=== PATIENT | male | born 1995 | race Caucasian/White ===

== ENCOUNTER 2017-04-02 03:45 | Emergency (ER) | payer SELFPAY ==
[2017-04-02 03:51] VITALS: BMI 30.1
--- NOTE | 2017-04-02 04:07 | ED PDOC ---
Arrival/HPI - General Chief Complaint: Chest Pain Time Seen by Provider: 04/02/17 03:59 Historian: Patient - History of Present Illness Narrative History of Present Illness (Text): 04/02/17 04:07 [place] is a 22 year old male who presents to the emergency department accompanied by friend complaining of chest pain radiating down his left arm tonight. Patient notes prior to arrival he felt dizzy with associated palpitations. Patient states he smoke "hash" tonight and notes he drinks about 3 -4 20 ounce energy drinks on a daily basis. Patient denies any shortness of breath, cough, fever, chills, abdominal pain, nausea, vomiting, diarrhea, back pain, neck pain, headache, dizziness, or any other complaints. Time/Duration: Other (tonight) Symptom Onset: Gradual Symptom Course: Unchanged Activities at Onset: Rest, Light Context: Home Past Medical History - Provider Review Nursing Documentation Reviewed: Yes - Infectious Disease Hx of Infectious Diseases: None - Pulmonary Other/Comment: "sometimes i have difficulty breathing" - Psychiatric Hx Substance Use: Yes - Surgical History Hx Appendectomy: Yes - Anesthesia Hx Anesthesia: Yes Hx Anesthesia Reactions: No Hx Malignant Hyperthermia: No Family/Social History - Physician Review Nursing Documentation Reviewed: Yes Family/Social History: No Known Family HX Smoking Status: Heavy Smoker > 10 Cigarettes Daily Hx Alcohol Use: Yes Frequency of alcohol use: Socially Hx Substance Use: Yes Substance used: Hashish Allergies/Home Meds Allergies/Adverse Reactions: Allergies No Known Allergies Allergy (Verified 06/05/16 03:56) Review of Systems - Physician Review All systems were reviewed & negative as marked: Yes - Review of Systems Constitutional: Normal. absent: Fevers Eyes: Normal ENT: Normal Respiratory: Normal. absent: SOB, Cough Cardiovascular: Chest Pain, Palpitations, Other (+near-syncopal) Gastrointestinal: Normal. absent: Abdominal Pain, Diarrhea, Nausea, Vomiting Genitourinary Male: Normal. absent: Dysuria, Frequency, Hematuria, Urinary Output Changes Musculoskeletal: Normal. absent: Back Pain, Neck Pain Skin: Normal. absent: Rash Neurological: Dizziness. absent: Headache Endocrine: Normal Hemo/Lymphatic: Normal Psychiatric: Normal Physical Exam Vital Signs Reviewed: Yes Vital Signs Temp Pulse Pulse Resp BP BP Pulse Ox 04/02/17 05:34 80 18 126/81 100 04/02/17 04:21 98.2 F 76 18 116/81 100 04/02/17 04:11 76 116/81 Temperature: Afebrile Blood Pressure: Normal Pulse: Regular Respiratory Rate: Normal Appearance: Positive for: Well-Appearing, Non-Toxic, Comfortable Pain Distress: None Mental Status: Positive for: Alert and Oriented X 3 - Systems Exam Head: Present: Atraumatic, Normocephalic Pupils: Present: PERRL Extroacular Muscles: Present: EOMI Conjunctiva: Present: Normal Mouth: Present: Moist Mucous Membranes Neck: Present: Normal Range of Motion Respiratory/Chest: Present: Clear to Auscultation, Good Air Exchange. No: Respiratory Distress, Accessory Muscle Use Cardiovascular: Present: Regular Rate and Rhythm, Normal S1, S2. No: Murmurs Abdomen: Present: Normal Bowel Sounds. No: Tenderness, Distention, Peritoneal Signs Back: Present: Normal Inspection Upper Extremity: Present: Normal Inspection. No: Cyanosis, Edema Lower Extremity: Present: Normal Inspection. No: Edema Neurological: Present: GCS=15, CN II-XII Intact, Speech Normal Skin: Present: Warm, Dry, Normal Color. No: Rashes Psychiatric: Present: Alert, Oriented x 3, Normal Insight, Normal Concentration Medical Decision Making ED Course and Treatment: 04/02/17 04:07 Impression: 22 year old male complaining of chest pain, near-syncope, palpitations, and dizziness. Plan: -- EKG -- CXR -- Labs, cardiac enzymes -- Urinalysis, urine drug screen -- Reassess and disposition Progress Notes: Reviewed EKG, NSR at [address]-segment elevations or depressions, no T-wave inversions, normal intervals. 04/02/17 05:15 Reviewed radiology, CXR shows no acute process. 04/02/17 05:26 Discussed results and plan with pt. Pt was offered admission to the hospital for further evaluation and monitoring. Pt states he does not wish to stay. Pt will sign out AMA. Explained to the patient that choosing to do so may result in permanent bodily harm or . Discussed at great length that without further evaluation and monitoring there may be unforeseen circumstances and/or deterioration including but not limited to underlying heart disease, permanent bodily harm, or as a result of their choice. Patient is alert, oriented, and shows the mental capacity to make clear decisions regarding the patients health care at this time. Patient continues to wish to leave against medical advice. In light of the patients decision to leave against medical advice, patient is aware of the importance to following up as instructed. The patient has been advised that they should return to the emergency room immediately if they change their mind at any time, or if their condition begins to change or worsen in any way. - Lab Interpretations Lab Results: 04/02/17 04:35 04/02/17 04:35 Lab Results 04/02/17 04:35: WBC 6.0, RBC 6.19 H, Hgb 15.9, Hct 48.0, MCV 77.5 L, MCH 25.7, MCHC 33.1, RDW 17.0 H, Plt Count 330, MPV 10.6 04/02/17 04:35: Sodium 141, Potassium 3.9, Chloride 101, Carbon Dioxide 27, Anion Gap 17, BUN 19, Creatinine 0.9, Est GFR ( Amer) > 60, Est GFR (Non- Af Amer) > 60, Random Glucose 98, Calcium 10.0, Total Bilirubin 0.7, AST 46, ALT 54, Alkaline Phosphatase 77, Lactate Dehydrogenase 546, Total Creatine Kinase 807 H, CK-MB (CK-2) 1.2, CK-MB (CK-2) % Cancelled, Troponin I < 0.01, Total Protein 9.2 H, Albumin 4.9 H, Globulin 4.3, Albumin/Globulin Ratio 1.1 04/02/17 04:35: PT 10.3, INR 0.95, APTT 26.1 04/02/17 04:20: Urine Opiates Screen Negative, Urine Methadone Screen Negative, Ur Barbiturates Screen Negative, Ur Phencyclidine Scrn Negative, Ur Amphetamines Screen Negative, U Benzodiazepines Scrn Negative, U Oth Cocaine Metabols Negative, U Cannabinoids Screen Negative I have reviewed the lab results: Yes - RAD Interpretation Radiology Orders: 04/02/17 04:07 CHEST PORTABLE [RAD] Stat Tool Planer Set Up Operator: ED Physician - EKG Interpretation Interpreted by ED Physician: Yes Type: 12 lead EKG - Scribe Statement The provider has reviewed the documentation as recorded by the Mihaela David Provider Attestation: All medical record entries made by the Mihaela were at my direction and personally dictated by me. I have reviewed the chart and agree that the record accurately reflects my personal performance of the history, physical exam, medical decision making, and the department course for this patient. I have also personally directed, reviewed, and agree with the discharge instructions and disposition. Disposition/Present on Arrival - Present on Arrival Any Indicators Present on Arrival: No History of DVT/PE: No History of Uncontrolled Diabetes: No Urinary Catheter: No History of Decub. Ulcer: No History Surgical Site Infection Following: None - Disposition Have Diagnosis and Disposition been Completed?: Yes Diagnosis: Chest pain Disposition: AGAINST MEDICAL ADVICE Disposition Time: 05:44 Condition: STABLE Discharge Instructions (ExitCare): Chest Pain (ED)
[2017-04-02 04:22] VITALS: RESP 18; TEMP 98.2; O2SAT 100
[2017-04-02 04:53] LABS: ALB/GLOB RATIO 1.1 (1.1-1.8); ALKALINE PHOSPHATASE 77 U/L (38-133); ALT/SGPT 54 U/L (7-56); AST/SGOT 46 U/L (15-59); BILIRUBIN,TOTAL 0.7 mg/dL (0.2-1.3); BLOOD UREA NITROGEN 19 mg/dL (7-21); CARBON DIOXIDE 27 mmol/L (21-33); CHLORIDE 101 mmol/L (98-107); GFR AFRICAN-AMERICAN > 60; GLUCOSE,RANDOM 98 mg/dL (70-110); POTASSIUM 3.9 mmol/L (3.6-5.0); SODIUM 141 mmol/L (132-148); TOTAL PROTEIN 9.2 g/dL (5.8-8.3)
[2017-04-02 04:54] LABS: MEAN CELL VOLUME 77.5 fL (80.0-105.0); MEAN CORPUSCULAR HEMOGLOBIN 25.7 pg (25.0-35.0); MEAN CORPUSCULAR HGB CONC 33.1 g/dl (31.0-37.0); MEAN PLATELET VOLUME 10.6 fl (7.0-11.0)
[2017-04-02 04:56] LABS: INR 0.95 (0.93-1.08); PARTIAL THROMBOPLASTIN TIME 26.1 Seconds (23.7-30.8)
[2017-04-02 05:20] LABS: TROPONIN I < 0.01 ng/mL
[2017-04-02 05:35] VITALS: BP 126/81; PULSE 80
--- NOTE | 2017-04-02 07:59 | RAD ---
HISTORY: pain COMPARISON: No prior. FINDINGS: LUNGS: No active pulmonary disease. PLEURA: No significant pleural effusion identified, no pneumothorax apparent. CARDIOVASCULAR: Normal. OSSEOUS STRUCTURES: No significant abnormalities. VISUALIZED UPPER ABDOMEN: Normal. OTHER FINDINGS: None. IMPRESSION: No active disease.
--- NOTE | 2017-04-02 09:39 | CARD ---
APPROVED REPORT EKG Measurement Heart [id number] MI 140P-12 [id number] <Conclusion> Normal sinus rhythm Normal ECG
== END 2017-04-02 05:36 | disposition left against medical advice (07) ==
LOC: ED 03:45
DX: R07.9 Chest pain, unspecified (principal); F12.90 Cannabis use, unspecified, uncomplicated
CPT/HCPCS: 71010; 80053; 82550; 82553; 83615; 84484; 85027; 85610; 85730; 93005; 99283; G0480

== ENCOUNTER 2017-10-22 20:18 | Emergency (ER) | payer SELFPAY ==
[2017-10-22 20:18] VITALS: BMI 30.1
[2017-10-22 20:54] VITALS: RESP 18; TEMP 98.4; O2SAT 97
--- NOTE | 2017-10-22 21:33 | ED PDOC ---
Arrival/HPI - General Chief Complaint: Weakness/Neurological Deficit Time Seen by Provider: 10/22/17 21:11 Historian: Patient - History of Present Illness Narrative History of Present Illness (Text): 10/22/17 21:29 [place] is a 22 year old male who presents to the Emergency department complaining of sore throat for the past few days. Patient also complaining of left arm paresthesias/tingling sensation for 4 days and bilateral rib discomfort. Patient reports a history of tobacco abuse. Patient denies any history of strenuous activity, fever, chills, shortness of breath, nausea, vomiting, back pain, neck pain, headache, dizziness, or any other complaints. Time/Duration: < week (4 days) Symptom Onset: Gradual Symptom Course: Unchanged Activities at Onset: Light Context: Home Past Medical History - Provider Review Nursing Documentation Reviewed: Yes - Infectious Disease Hx of Infectious Diseases: None - Pulmonary Hx Respiratory Disorders: Yes Hx Asthma: Yes Other/Comment: "sometimes i have difficulty breathing" - Psychiatric Hx Substance Use: Yes - Surgical History Hx Appendectomy: Yes - Anesthesia Hx Anesthesia: Yes Hx Anesthesia Reactions: No Hx Malignant Hyperthermia: No Family/Social History - Physician Review Nursing Documentation Reviewed: Yes Family/Social History: Unknown Family HX Smoking Status: Heavy Smoker > 10 Cigarettes Daily Hx Alcohol Use: Yes Frequency of alcohol use: Few days per week Hx Substance Use: Yes Substance used: Hashish Allergies/Home Meds Allergies/Adverse Reactions: Allergies No Known Allergies Allergy (Verified 06/05/16 03:56) Review of Systems - Physician Review All systems were reviewed & negative as marked: Yes - Review of Systems Constitutional: Normal. absent: Fevers Eyes: Normal ENT: Sore Throat Respiratory: Normal. absent: SOB, Cough Cardiovascular: Other (+rib pain) Gastrointestinal: Normal. absent: Abdominal Pain, Nausea, Vomiting Genitourinary Male: Normal. absent: Dysuria, Frequency, Hematuria, Urinary Output Changes Musculoskeletal: Other (+left arm tingling sensation). absent: Back Pain, Neck Pain Skin: Normal. absent: Rash Neurological: Normal. absent: Headache, Dizziness Endocrine: Normal Hemo/Lymphatic: Normal Psychiatric: Normal Physical Exam Vital Signs Reviewed: Yes Vital Signs Temp Pulse Resp BP Pulse Ox 10/23/17 00:18 73 18 126/78 97 10/22/17 22:18 74 18 127/80 97 10/22/17 20:54 98.4 F 72 18 128/82 97 Temperature: Afebrile Blood Pressure: Normal Pulse: Regular Respiratory Rate: Normal Appearance: Positive for: Well-Appearing, Non-Toxic, Comfortable Pain Distress: None Mental Status: Positive for: Alert and Oriented X 3 - Systems Exam Head: Present: Atraumatic, Normocephalic Pupils: Present: PERRL Extroacular Muscles: Present: EOMI Conjunctiva: Present: Normal Ears: Present: Normal, NORMAL TM, Normal Canal. No: Erythema, TM Bulging, Fluid , TM Perf Mouth: Present: Moist Mucous Membranes Pharnyx: Present: ERYTHEMA (Minimal erythema to posterior pharynx) Neck: Present: Normal Range of Motion Respiratory/Chest: Present: Clear to Auscultation, Good Air Exchange, Tender to Palpation (Bilateral rib tenderness to palpation). No: Respiratory Distress, Accessory Muscle Use Cardiovascular: Present: Regular Rate and Rhythm, Normal S1, S2. No: Murmurs Abdomen: Present: Normal Bowel Sounds. No: Tenderness, Distention, Peritoneal Signs Back: Present: Normal Inspection Upper Extremity: Present: Normal Inspection. No: Cyanosis, Edema Lower Extremity: Present: Normal Inspection. No: Edema Neurological: Present: GCS=15, CN II-XII Intact, Speech Normal, Motor Func Grossly Intact, Normal Sensory Function Skin: Present: Warm, Dry, Normal Color. No: Rashes Psychiatric: Present: Alert, Oriented x 3, Normal Insight, Normal Concentration Medical Decision Making ED Course and Treatment: 10/22/17 21:29 Impression: 22 year old male complaining of sore throat, left arm paresthesias/tingling, and bilateral rib discomfort. Differential Diagnosis included but are not limited to: pharyngitis vs. paresthesias vs. muscle strain Plan: -- EKG -- Chest X-ray -- Labs, cardiac enzymes -- Urinalysis, urine drug screen -- Reassess and disposition Prior Visits: Notes and results from previous visits were reviewed. On 04/02/2017, pt was seen in the Emergency department for chest pain radiating to his arm. Pt left against medical advice. Progress Notes: 10/22/17 22:00 Reviewed EKG, NSR at [address]-segment elevations or depressions, no T-wave inversions, normal intervals. 10/22/17 23:55 Reviewed radiology, Chest X-ray shows no acute processes. Labs noted, within normal limits. 10/23/17 00:45 On re-evaluation, patient feels better and is in no acute distress. I have discussed the results and plan with the patient, who expresses understanding. Patient in agreement with plan to be discharged home. Patient is stable for discharge. Patient was instructed to follow up with physician or return if symptoms worsen or new concerning symptoms arise. - Lab Interpretations Lab Results: 10/22/17 22:00 10/22/17 22:00 Lab Results 10/22/17 22:00: WBC 4.8, RBC 6.26 H, Hgb 16.3, Hct 49.3, MCV 78.8 L, MCH 26.0, MCHC 33.1, RDW 15.4 H, Plt Count 279, MPV 10.6 10/22/17 22:00: Sodium 141, Potassium 4.5, Chloride 103, Carbon Dioxide 26, Anion Gap 17, BUN 19, Creatinine 1.0, Est GFR ( Amer) > 60, Est GFR (Non- Af Amer) > 60, Random Glucose 96, Calcium 10.0, Total Bilirubin 0.6, AST 42, ALT 51, Alkaline Phosphatase 61, Total Protein 8.4 H, Albumin 4.6, Globulin 3.8 , Albumin/Globulin Ratio 1.2 I have reviewed the lab results: Yes - RAD Interpretation Radiology Orders: 10/22/17 21:33 CHEST ONE VIEW [RAD] Stat Instrumentation Tech: ED Physician - EKG Interpretation Interpreted by ED Physician: Yes Type: 12 lead EKG - Medication Orders Current Medication Orders: Discontinued Medications Amoxicillin (Amoxil 500 Mg Cap) 500 mg PO STAT STA PRN Reason: Protocol Stop: 10/23/17 00:50 Last Admin: 10/23/17 00:56 Dose: 500 mg - Scribe Statement The provider has reviewed the documentation as recorded by the Mihaela David Provider Scribe Attestation: All medical record entries made by the Scribe were at my direction and personally dictated by me. I have reviewed the chart and agree that the record accurately reflects my personal performance of the history, physical exam, medical decision making, and the department course for this patient. I have also personally directed, reviewed, and agree with the discharge instructions and disposition. Disposition/Present on Arrival - Present on Arrival Any Indicators Present on Arrival: No History of DVT/PE: No History of Uncontrolled Diabetes: No Urinary Catheter: No History of Decub. Ulcer: No History Surgical Site Infection Following: None - Disposition Have Diagnosis and Disposition been Completed?: Yes Diagnosis: Muscle strain, Pharyngitis, Paresthesia Disposition: HOME/ ROUTINE Disposition Time: 00:45 Patient Plan: Discharge Condition: GOOD Discharge Instructions (ExitCare): Muscle Strain (ED), Pharyngitis (ED), Paresthesia (ED) Additional Instructions: Take meds as prescribed/advil as directed/follow up with your doctor this week Prescriptions: Amoxicillin [Amoxil 500 mg Cap] 500 mg PO TID #21 cap Referrals: Michael Bautista, [Primary Care Provider] - Follow up with primary Brennon Juárez MD [Staff Provider] - Follow up with primary Forms: [employer] (Korean)
[2017-10-22 22:27] LABS: ALKALINE PHOSPHATASE 61 U/L (38-126); ALT/SGPT 51 U/L (7-56); AST/SGOT 42 U/L (17-59); BILIRUBIN,TOTAL 0.6 mg/dL (0.2-1.3); BLOOD UREA NITROGEN 19 mg/dL (7-21); CARBON DIOXIDE 26 mmol/L (21-33); CHLORIDE 103 mmol/L (98-107); GFR AFRICAN-AMERICAN > 60; GLUCOSE,RANDOM 96 mg/dL (70-110); POTASSIUM 4.5 mmol/L (3.6-5.0); SODIUM 141 mmol/L (132-148); TOTAL PROTEIN 8.4 g/dL (5.8-8.3)
[2017-10-22 22:28] LABS: ALB/GLOB RATIO 1.2 (1.1-1.8)
[2017-10-22 22:31] LABS: HEMATOCRIT 49.3 % (42.0-52.0); MEAN CELL VOLUME 78.8 fl (80.0-105.0); MEAN CORPUSCULAR HGB CONC 33.1 g/dl (31.0-37.0); MEAN PLATELET VOLUME 10.6 fl (7.0-11.0); RED CELL DISTRIBUTION WIDTH 15.4 % (11.5-14.5); WHITE BLOOD COUNT 4.8 10^3/ul (4.5-11.0)
[2017-10-23 01:10] VITALS: BP 126/78; PULSE 73
--- NOTE | 2017-10-23 08:49 | RAD ---
PROCEDURE: CHEST RADIOGRAPH, 1 VIEW HISTORY: chest tenderness COMPARISON: 04/02/2017 FINDINGS: LUNGS: Clear. PLEURA: No pneumothorax or pleural fluid seen. CARDIOVASCULAR: Normal. OSSEOUS STRUCTURES: No significant abnormalities. VISUALIZED UPPER ABDOMEN: Normal. OTHER FINDINGS: None. IMPRESSION: No active disease.
--- NOTE | 2017-10-23 20:01 | CARD ---
APPROVED REPORT EKG Measurement Heart [id number] [id number] <Conclusion> Normal sinus rhythm Normal ECG
== END 2017-10-23 00:57 | disposition home or self-care (01) ==
LOC: ED 20:18
DX: R20.2 Paresthesia of skin (principal); J02.9 Acute pharyngitis, unspecified; T14.8XXA Other injury of unspecified body region, initial encounter; X58.XXXA Exposure to other specified factors, initial encounter; F17.210 Nicotine dependence, cigarettes, uncomplicated

== ENCOUNTER 2018-03-06 01:30 | Emergency (ER) | payer SELFPAY ==
[2018-03-06 01:42] VITALS: BMI 32.3
[2018-03-06 01:45] VITALS: RESP 18
--- NOTE | 2018-03-06 02:13 | ED PDOC ---
Arrival/HPI - General Chief Complaint: Fever Time Seen by Provider: 03/06/18 02:02 Historian: Patient - History of Present Illness Narrative History of Present Illness (Text): 03/06/18 02:13 [place] is a 22 year old male smoker who presents to the Emergency department complaining of productive cough for the pasy 3 days. Patient reports associated sore throat and body aches with subjective fever tonight. Patient denies any fchest pain, shortness of breath, nausea, vomiting, diarrhea, urinary symptoms, back pain, neck pain, headache, dizziness, or any other complaints. Symptom Onset: Gradual Symptom Course: Unchanged Activities at Onset: Light Context: Home Past Medical History - Provider Review Nursing Documentation Reviewed: Yes - Infectious Disease Hx of Infectious Diseases: None - Cardiac Hx Cardiac Disorders: No - Pulmonary Hx Respiratory Disorders: Yes Hx Asthma: Yes Other/Comment: "sometimes i have difficulty breathing" - Neurological Hx Neurological Disorder: No - HEENT Hx HEENT Disorder: No - Renal Hx Renal Disorder: No - Endocrine/Metabolic Hx Endocrine Disorders: No - Hematological/Oncological Hx Blood Disorders: No - Integumentary Hx Dermatological Disorder: No - Musculoskeletal/Rheumatological Hx Musculoskeletal Disorders: No - Gastrointestinal Hx Gastrointestinal Disorders: No - Genitourinary/Gynecological Hx Genitourinary Disorders: No - Psychiatric Hx Psychophysiologic Disorder: No Hx Substance Use: Yes - Surgical History Hx Appendectomy: Yes - Anesthesia Hx Anesthesia: Yes Hx Anesthesia Reactions: No Hx Malignant Hyperthermia: No Family/Social History - Physician Review Nursing Documentation Reviewed: Yes Family/Social History: Unknown Family HX Smoking Status: Heavy Smoker > 10 Cigarettes Daily Hx Alcohol Use: Yes Hx Substance Use: Yes Substance used: Hashish Allergies/Home Meds Allergies/Adverse Reactions: Allergies No Known Allergies Allergy (Verified 06/05/16 03:56) Review of Systems - Physician Review All systems were reviewed & negative as marked: Yes - Review of Systems Constitutional: Fevers, Other (+generalized body aches) Eyes: Normal ENT: Sore Throat Respiratory: Cough, Sputum Cardiovascular: Normal. absent: Chest Pain Gastrointestinal: Normal. absent: Abdominal Pain, Nausea, Vomiting, Appetite Changes Genitourinary Male: Normal. absent: Dysuria, Frequency, Hematuria, Urinary Output Changes Musculoskeletal: Normal. absent: Back Pain, Neck Pain Skin: Normal. absent: Rash Neurological: Normal. absent: Headache, Dizziness Endocrine: Normal Hemo/Lymphatic: Normal Psychiatric: Normal Physical Exam Vital Signs Reviewed: Yes Vital Signs Temp Pulse Resp BP Pulse Ox 03/06/18 01:42 100.9 F H 107 H 18 130/74 99 Temperature: Afebrile Blood Pressure: Normal Pulse: Regular Respiratory Rate: Normal Appearance: Positive for: Well-Appearing, Non-Toxic, Comfortable Pain Distress: None Mental Status: Positive for: Alert and Oriented X 3 - Systems Exam Head: Present: Atraumatic, Normocephalic Pupils: Present: PERRL Extroacular Muscles: Present: EOMI Conjunctiva: Present: Normal Ears: Present: Normal, NORMAL TM, Normal Canal. No: Erythema, TM Bulging, Fluid , TM Perf Mouth: Present: Moist Mucous Membranes Pharnyx: Present: ERYTHEMA (Pharyngeal erythema). No: EXUDATE, TONSILS ENLARGED , Peritonsilar Swelling, Uvular Deviation, Muffled/Hoarse Voice, Strider, Soft Palate/Uvular Edema Nose (External): Present: Atraumatic Nose (Internal): Present: Normal Inspection Neck: Present: Normal Range of Motion. No: Meningeal Signs, MIDLINE TENDERNESS , Paraspinal Tenderness Respiratory/Chest: Present: Clear to Auscultation, Good Air Exchange. No: Respiratory Distress, Accessory Muscle Use Cardiovascular: Present: Regular Rate and Rhythm, Normal S1, S2. No: Murmurs Abdomen: No: Tenderness, Distention, Peritoneal Signs Back: Present: Normal Inspection Upper Extremity: Present: Normal Inspection. No: Cyanosis, Edema Lower Extremity: Present: Normal Inspection. No: Edema Neurological: Present: GCS=15, CN II-XII Intact, Speech Normal, Motor Func Grossly Intact, Normal Sensory Function Skin: Present: Warm, Dry, Normal Color. No: Rashes Psychiatric: Present: Alert, Oriented x 3, Normal Insight, Normal Concentration Medical Decision Making ED Course and Treatment: 03/06/18 02:13 Impression: 22 year old male complaining of productive cough, sore throat, and body aches since yesterday with subjective fever today. Differential Diagnosis included but are not limited to: pharyngitis vs. URI vs. influenza vs. viral syndrome Plan: -- Chest X-ray -- Throat Culture -- Rapid influenza, rapid strep -- Reassess and disposition Progress Notes: 03/06/18 03:00 reviewed radiology, Chest X-ray shows no acute processes. 03/06/18 03:17 On re-evaluation, patient feels better and is in no acute distress. I have discussed the results and plan with the patient, who expresses understanding. Patient in agreement with plan to be discharged home. Patient is stable for discharge. Patient was instructed to follow up with physician or return if symptoms worsen or new concerning symptoms arise. - Lab Interpretations Lab Results: Lab Results 03/06/18 02:22: Influenza Typ A,B (EIA) Negative for flu a/b, Grp A Beta Strep Ag Negative I have reviewed the lab results: Yes - RAD Interpretation Radiology Orders: 03/06/18 02:11 CHEST TWO VIEWS (PA/LAT) [RAD] Stat [employer] House Worker: ED Physician - Medication Orders Current Medication Orders: Azithromycin (Zithromax) 500 mg PO ONCE STA PRN Reason: Protocol Stop: 03/06/18 03:14 - Scribe Statement The provider has reviewed the documentation as recorded by the Mihaela David Provider Scribe Attestation: All medical record entries made by the Scribe were at my direction and personally dictated by me. I have reviewed the chart and agree that the record accurately reflects my personal performance of the history, physical exam, medical decision making, and the department course for this patient. I have also personally directed, reviewed, and agree with the discharge instructions and disposition. Disposition/Present on Arrival - Present on Arrival History of DVT/PE: No History of Uncontrolled Diabetes: No Urinary Catheter: No History of Decub. Ulcer: No History Surgical Site Infection Following: None - Disposition Diagnosis: Upper respiratory infection Disposition: HOME/ ROUTINE Patient Problems: Current Active Problems Problem Status Onset Upper respiratory infection Acute Discharge Instructions (ExitCare): Bacterial Upper Respiratory Infection, Adult Prescriptions: Benzonatate [Tessalon Perles] 100 mg PO TID #12 sgl Azithromycin [Zithromax] 250 mg PO DAILY #4 tab Referrals: Maria Victoria Lacey MD [Primary Care Provider] - Follow up with primary Forms: [employer] (Nepalese)
[2018-03-06 02:49] LABS: INFLUENZA A B NEGATIVE FOR FLU A/B (NEGATIVE)
[2018-03-06 03:39] VITALS: BP 107/69; PULSE 99; TEMP 99.1; O2SAT 100
--- NOTE | 2018-03-06 09:28 | RAD ---
HISTORY: Cough COMPARISON: 10/22/2017 TECHNIQUE: Chest PA and lateral FINDINGS: LUNGS: No active pulmonary disease. PLEURA: No significant pleural effusion identified. No pneumothorax apparent. CARDIOVASCULAR: Normal. OSSEOUS STRUCTURES: No significant abnormalities. VISUALIZED UPPER ABDOMEN: Normal. OTHER FINDINGS: None. IMPRESSION: No active disease. No significant interval change compared to the prior examination(s).
== END 2018-03-06 03:37 | disposition home or self-care (01) ==
LOC: ED 01:30
DX: J06.9 Acute upper respiratory infection, unspecified (principal); F17.210 Nicotine dependence, cigarettes, uncomplicated